=== PATIENT | female | born 1945 ===

== ENCOUNTER 2024-05-29 08:00 | Outpatient (CLI) | payer MEDICARE, OTHER ==
--- NOTE | 2024-05-29 17:40 | XRAY Report ---
PROCEDURE: Hand 3+V RT INDICATIONS: RIGHT FINGER PAIN TECHNIQUE: 3 views of the hand(s) acquired. COMPARISON: None. FINDINGS: Bones: Displaced fracture of the fifth proximal phalanx.. Severe first CMC joint degeneration. Scat tered interphalangeal joint degeneration ranging from mild to severe. No suspicious bony lesions. Soft tissues: No suspicious soft tissue calcifications or masses. IMPRESSION: Displaced fifth proximal phalanx fracture. Reviewed by: Bong Sena MD on 05/29/2024 5:39 PM PDT Approved by: Bong Sena MD on 05/29/2024 5:39 PM PDT Station ID: [id number]
== END 2024-05-29 23:59 | disposition home or self-care (01) ==
LOC: DI.S 08:00
PROVIDERS: ATTEND Physician Assistant
DX: S62.616A Displaced fracture of proximal phalanx of right little finger, initial encounter for closed fracture (principal)

== ENCOUNTER 2024-05-29 16:16 | Emergency (ER) | payer MEDICARE, OTHER ==
[2024-05-29 16:33] VITALS: O2SAT 99
--- NOTE | 2024-05-29 17:02 | ED Physician Documentation ---
PD HPI UPPER EXT INJURY - Stated complaint Stated Complaint: RT HAND INJ - Chief complaint Chief Complaint: Ext Problem - History obtained from History obtained from: Patient - History of Present Illness Location: Right, Finger (little finger and lateral hand.) PD PAST MEDICAL HISTORY - Past Medical History Past Medical History: Yes Cardiovascular: Hypertension Endocrine/Autoimmune: HyPOthyroidism - Past Surgical History Past Surgical History: No - Present Medications Home Medications: Ambulatory Orders Medication Instructions Recorded Confirmed HYDROcod/ACETAM 5/325 [[place] 5/325] 1 ea PO Q6H PRN #12 tablet 05/29/24 - Allergies Allergies/Adverse Reactions: Allergies Allergy/AdvReac Type Severity Reaction Status Date / Time No Known Drug Allergies Allergy Verified 05/29/24 17:12 - Social History Does the pt smoke?: No Smoking Status: Never smoker Does the pt drink ETOH?: Yes - Immunizations Immunizations are current?: Yes Results - Vitals Vitals: Vital Signs - 24 hr 05/29/24 05/29/24 16:23 18:02 Temperature 36.6 C 36.7 C Heart Rate 84 61 Respiratory 16 16 Rate Blood Pressure 154/66 H 130/63 O2 Saturation 99 99 Procedures - Splint (location) - Minor right ulnar gutter Splint applied by: Physician Type of splint: Fiberglass (with padding, with straightening pressure on finger to align it when splint hardens.) PD Medical Decision Making - ED course Complexity details: considered differential, d/w patient ED course: Patient had fallen with hand injury and seen at walk in clinic with xray showing fracture of proximal proximal phalanx and angulation. referred to ED for reduction and splinting. Not consulted ortho. I reviewed the xray done at Walk In. Simple fracture with angulation c/w force of tendons pulling, with angulation dorsallyat fracture and fleion at DIP. Local anesth with lido 1% without epi. The finger straightened easily with just pulling and pressure to align. reangulates when not held. I therefore got splinting material ready and mostly on, then straightened it and held splint ulnar gutter until hardened to maintain reduction. Departure - Departure Disposition: 01 Home, Self Care Clinical Impression: Accidental fall, Fracture of phalanx of hand Condition: Stable Record reviewed to determine appropriate education?: Yes Instructions: ED Fx Finger Closed Follow-Up: Orthopedic Care [Provider Group] Prescriptions: HYDROcod/ACETAM 5/325 [[place] 5/325] 1 ea PO Q6H PRN #12 tablet PRN Reason: Pain Comments: Your broken finger is now straighter and splinted in a position to hold it. We gave you a sling as well to help support elevation. Ice and cool towels or such to the area periodically today and tomorrow to help reduce swelling in particular. Anti-inflammatory such as ibuprofen or naproxen can be used to help with pain. Add Tylenol 500 to 650 mg 4 times daily regularly for pain. To that add hydrocodone/acetaminophen if needed for worse pains and I prescribed a limited amount as this will likely be needed just in the first few days or so. Call the orthopedic office tomorrow for a follow-up appointment presumably in about a week. This will give time for swelling and bruising to decrease and allow a better assessment if this is fully healable with splinting/casting or would need surgical intervention such as pinning. Most likely would be just splinted for the healing duration of 4 to 6 weeks. Forms: PCP List Discharge Date/Time: 05/29/24 18:02
[2024-05-29 18:07] VITALS: BP 130/63
== END 2024-05-29 18:02 | disposition home or self-care (01) ==
LOC: ED 16:16
DX: S62.616A Displaced fracture of proximal phalanx of right little finger, initial encounter for closed fracture (principal); W18.39XA Other fall on same level, initial encounter; I10 Essential (primary) hypertension; E03.9 Hypothyroidism, unspecified
CPT/HCPCS: 29125; 99283